=== PATIENT | female | born 1985 | race Caucasian/White ===

== ENCOUNTER 2018-05-07 00:54 | Observation (INO) | payer MEDICAID, SELFPAY ==
[2018-05-07] VITALS (13 sets, daily range): BP systolic 130–136; BP diastolic 70–98; PULSE 58–89; RESP 16–22; TEMP 36.4–36.6; O2SAT 96–100; BMI 21.7; BMI 20.4
[2018-05-07] MEDS: Dicyclomine 20 MG/2 ML Vial IM (01:29)
[2018-05-07] MEDS: proMETHazine 25 MG Tablet PO (01:29)
[2018-05-07] MEDS: DiphenhydrAMINE 25 MG Capsule 50 MG PO (01:29)
--- NOTE | 2018-05-07 01:34 | ED.VISSUMM ---
- ER Visit Summary Date of Service: 05/07/18 Chief Complaint: Detox History of Present Illness: The patient is a 32 F who presents with a few days withdrawing from her fentanyl and heroin. She is requesting detox. She feels anxious nervous she has nausea but no vomiting. Physical Examination: She appears in no significant distress she has no active tremors. Her pupils are 3 mm and reactive she has a regular rate she has clear lungs bilaterally she has a soft abdomen she has normal skin examination and normal exam Emergency Department Course and Treatment: Patient has aCIWA score of 14, this is mild withdrawal and she does not meet criteria for inpatient, however it is in the middle of the night and the detox facility is not open per hospital protocol we will see her in the morning I will hold her in the emergency department until being seen by them. Impression: Opiate addiction requesting detox This note was generated with [employer] dictation software. It may contain incorrect words, spelling, and punctuation that were not noted in review of the chart prior to signing ED Disposition - Plan for ED Patient: Chief Complaint: Substance Abuse Referrals: Care Physician,No Primary [Primary Care Provider] -
--- NOTE | 2018-05-07 10:35 | NURSING ---
notified maggie from the [facility] that pt is here. notified maggie that pt stated that she is homeless.
[2018-05-07] MEDS: Buprenorphine HCl 2 MG TAB.SUBL 4 MG SL (10:53)
--- NOTE | 2018-05-07 12:48 | PCM.HP.STD ---
Problem List (1) Hepatitis C antibody test positive Status: Chronic (2) Opiate addiction Status: Chronic (3) Polysubstance abuse Status: Chronic (4) Nicotine dependence Status: Chronic History of Present Illness Date of Admission: 05/07/18 Chief Complaint: chills, nausea, rhinorrhea and anxiety The patient is a 32 year old F who presented to the ER requesting admission for medic hepatitis C in the past. She has not received treatment. Ally supervised withdrawal from heroin/fentanyl. He last used on 05/05/18. She is c/o chills, rhinorrhea, anxiety and abdominal cramping. She denies diarrhea. No vomiting. She has been to rehab multiple times. The last time was in [place] and she tells me she was sober for about a year. She does not know why she went back to using drugs but then admitted she was hanging out with friends who were using. She admits to testing + for hepatitis C in the past and has not received treatment. She has 5 children and her mother and sister have custody. She denies any alcohol. She does smoke. She denies using any benzo's. She would like to go to a sober living house at [place]. 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 Mother and sister have taken custody of the childre Lives: Homeless Smoking Status: Current every day smoker Tobacco Use: Cigarettes Alcohol: Rare Drugs: Cocaine, Heroin, - - occasional crack - *Family History Maternal History Items: No pertinent history Paternal History Items: No pertinent history Review of Systems Constitutional: Reports: Chills, Malaise. Denies: Fever Eyes: Denies: Vision Change HEENT: Reports: - - runny nose. Denies: Head Aches, Sinus Congestion, Sinus Drainage, Sore Throat Cardiovascular: Denies: Chest Pain, Palpitations Respiratory: Denies: Cough, Shortness of breath at rest, Sputum production Gastrointestinal: Reports: Abdominal Pain - crampy, Vomiting. Denies: Nausea Genitourinary: Denies: Dysuria Gynecological: Denies: Vaginal discharge Musculoskeletal: Denies: Joint Pain, Joint Tenderness Skin: Denies: Jaundice, Wounds Neurological: Denies: Numbness, Tingling, Focal weakness Psychiatric: Denies: Homicidal Ideations, Suicidal Ideations Endocrine: Reports: Change in Body Habitus - losing weight Hematologic/ Lymphatic: Denies: Hx of blood clot VTE Information - Inpt Only VTE Present on Admission: No VTE Mechan Device Prophylaxis: None VTE Pharm Prophylaxis ordered?: No Reason prophylaxis not ordered:: Treatment Not Indicated - Physical Exam General: Alert, Cooperative, - - She is wrapped up in a bblanket and c/o being cold. Looks older than her stated age HEENT: Atraumatic, PERRLA, Normocephalic, - - ? scleral icterus Oral: Dry Mucosa Neck: Supple, No Nuchal Rigidity, Trachea Midline Lungs: Rhonchi - cleared after a few deep breaths Cardiovascular: Regular rate, Regular Rhythm, Normal S1, Normal S2, No murmurs Abdomen: Soft, Non-Distended, Tender - crampy Extremities: No clubbing, No cyanosis, No edema Skin: No breakdown, - - no abscesses, has scarring and discoloration of the skin from od injection sites and some fresh tractsa that do not appear to be infected Neurological: Cranial nerves II-XII grossly intact, Neuro grossly intact Psych/Mental Status: Appropriate Vital Signs Temp Pulse Resp BP Pulse Ox 97.9 F 70 18 133/85 H 100 05/07/18 10:16 05/07/18 10:16 05/07/18 10:16 05/07/18 10:16 05/07/18 10:15 Oxygen Delivery Method Room Air Weight: 115 lb 4.828 oz Body Mass Index (BMI) 20.4 Intake and Output for Last 24 Hours 05/05/18 05/06/18 05/07/18 23:59 23:59 23:59 Output Total 400 / 400 Balance -400 / -400 Laboratory Tests Past 24 Hrs 05/07/18 10:20 Urine Opiates Screen POSITIVE H Urine Methadone Screen NEGATIVE Ur Barbiturates Screen NEGATIVE Ur Phencyclidine Scrn NEGATIVE Ur Amphetamines Screen NEGATIVE U Methamphetamin-MDMA NEGATIVE U Benzodiazepines Scrn NEGATIVE Urine Cocaine Screen POSITIVE H U Cannabinoids Screen NEGATIVE Ur Drug Screen Comment Assessment/Plan Impressions 1. opiate addiction 2. polysubstance abuse 3. Hepatitis C + 4. tobacco dependence unable to get blood - lab tried and the nurses tried - she is afraid of needles and would not let them try again. Urine is negative and her exam is unremarkable so will cancel the lab. She is eating and drinking. Continue the [facility] program for opiate withdrawal. She met with Kacy from [facility] today to discuss destination at [place]. Code Visit Inpatient E&M: [id number] Init Hosp L2
--- NOTE | 2018-05-07 13:04 | HP.PCM_ITS ---
Problem List (1) Hepatitis C antibody test positive Status: Chronic (2) Opiate addiction Status: Chronic (3) Polysubstance abuse Status: Chronic (4) Nicotine dependence Status: Chronic History of Present Illness Date of Admission: 05/07/18 Chief Complaint: chills, nausea, rhinorrhea and anxiety The patient is a 32 year old F who presented to the ER requesting admission for medic hepatitis C in the past. She has not received treatment. Ally supervised withdrawal from heroin/fentanyl. He last used on 05/05/18. She is c/ o chills, rhinorrhea, anxiety and abdominal cramping. She denies diarrhea. No vomiting. She has been to rehab multiple times. The last time was in [place] and she tells me she was sober for about a year. She does not know why she went back to using drugs but then admitted she was hanging out with friends who were using. She admits to testing + for hepatitis C in the past and has not received treatment. She has 5 children and her mother and sister have custody. She denies any alcohol. She does smoke. She denies using any benzo's. She would like to go to a sober living house at [place]. 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 Mother and sister have taken custody of the childre Lives: Homeless Smoking Status: Current every day smoker Tobacco Use: Cigarettes Alcohol: Rare Drugs: Cocaine, Heroin, - - occasional crack - *Family History Maternal History Items: No pertinent history Paternal History Items: No pertinent history Review of Systems Constitutional: Reports: Chills, Malaise. Denies: Fever Eyes: Denies: Vision Change HEENT: Reports: - - runny nose. Denies: Head Aches, Sinus Congestion, Sinus Drainage, Sore Throat Cardiovascular: Denies: Chest Pain, Palpitations Respiratory: Denies: Cough, Shortness of breath at rest, Sputum production Gastrointestinal: Reports: Abdominal Pain - crampy, Vomiting. Denies: Nausea Genitourinary: Denies: Dysuria Gynecological: Denies: Vaginal discharge Musculoskeletal: Denies: Joint Pain, Joint Tenderness Skin: Denies: Jaundice, Wounds Neurological: Denies: Numbness, Tingling, Focal weakness Psychiatric: Denies: Homicidal Ideations, Suicidal Ideations Endocrine: Reports: Change in Body Habitus - losing weight Hematologic/ Lymphatic: Denies: Hx of blood clot VTE Information - Inpt Only VTE Present on Admission: No VTE Mechan Device Prophylaxis: None VTE Pharm Prophylaxis ordered?: No Reason prophylaxis not ordered:: Treatment Not Indicated - Physical Exam General: Alert, Cooperative, - - She is wrapped up in a bblanket and c/o being cold. Looks older than her stated age HEENT: Atraumatic, PERRLA, Normocephalic, - - ? scleral icterus Oral: Dry Mucosa Neck: Supple, No Nuchal Rigidity, Trachea Midline Lungs: Rhonchi - cleared after a few deep breaths Cardiovascular: Regular rate, Regular Rhythm, Normal S1, Normal S2, No murmurs Abdomen: Soft, Non-Distended, Tender - crampy Extremities: No clubbing, No cyanosis, No edema Skin: No breakdown, - - no abscesses, has scarring and discoloration of the skin from od injection sites and some fresh tractsa that do not appear to be infected Neurological: Cranial nerves II-XII grossly intact, Neuro grossly intact Psych/Mental Status: Appropriate Vital Signs Temp Pulse Resp BP Pulse Ox 97.9 F 70 18 133/85 H 100 05/07/18 10:16 05/07/18 10:16 05/07/18 10:16 05/07/18 10:16 05/07/18 10:15 Oxygen Delivery Method Room Air Weight: 115 lb 4.828 oz Body Mass Index (BMI) 20.4 Intake and Output for Last 24 Hours 05/05/18 05/06/18 05/07/18 23:59 23:59 23:59 Output Total 400 / 400 Balance -400 / -400 Laboratory Tests Past 24 Hrs 05/07/18 10:20 Urine Opiates Screen POSITIVE H Urine Methadone Screen NEGATIVE Ur Barbiturates Screen NEGATIVE Ur Phencyclidine Scrn NEGATIVE Ur Amphetamines Screen NEGATIVE U Methamphetamin-MDMA NEGATIVE U Benzodiazepines Scrn NEGATIVE Urine Cocaine Screen POSITIVE H U Cannabinoids Screen NEGATIVE Ur Drug Screen Comment Assessment/Plan Impressions 1. opiate addiction 2. polysubstance abuse 3. Hepatitis C + 4. tobacco dependence unable to get blood - lab tried and the nurses tried - she is afraid of needles and would not let them try again. Urine is negative and her exam is unremarkable so will cancel the lab. She is eating and drinking. Continue the [facility] program for opiate withdrawal. She met with Kacy from [facility] today to discuss destination at [place]. Code Visit Inpatient E&M: [id number] Init Hosp L2
[2018-05-07] MEDS: cloNIDine HCl 0.1 MG Tablet PO (13:24)
[2018-05-07] MEDS: Ibuprofen 600 MG Tablet PO (13:24)
--- NOTE | 2018-05-07 13:30 | CHAPLAIN ---
[facility] staff requested a visit to patient; pt was all covered in blankets and said would you please come back another time?; pt said that she is trying to rest
[2018-05-07 13:36] LABS: Internal QC Validated? YES +Cl - CLEAR BKGD; Pregnancy, Urine Negative Negative
--- NOTE | 2018-05-07 17:00 | NURSING ---
pt left [facility]. pt signed papers. dr notified message left with [facility].
--- NOTE | 2018-05-11 06:40 | PCM.DC.SUM ---
Discharge Date and Diagnosis Date of Admission: 05/07/18 Date of Discharge: 05/07/18 - Primary Discharge Diagnosis acute opiate withdrawal - Secondary Discharge Diagnosis Chronic Problems Hepatitis C antibody test positive (Chronic) Opiate addiction (Chronic) Polysubstance abuse (Chronic) Nicotine dependence (Chronic) Hospital Course and Treatment none Operations: None Procedures: None Summary of Care Provided: The patient is a 32 year old F with a past medical history of polysubstance abuse, opiate dependence, nicotine dependence and hepatitis C who presented to the emergency department at [facility] on 05/07/2018 requesting inpatient admission for medically supervised withdrawal from opiates. She admitted to using heroin, fentanyl, cocaine and sometimes meth. She complained of chills, rhinorrhea, anxiety and abdominal cramping. She had been to multiple rehab programs in the past and failed. Her longest period of sobriety was 1 year. She was admitted to the [facility] program and the [facility] orders for acute opiate withdrawal were instituted. Unfortunately she only stayed approximately 4 hours prior to leaving [facility]. Home Medications: Medications to take at Discharge NK [NK] 05/07/18 Primary Care Physician: Care Physician,No Primary [Primary Care Provider] - Disposition: Against Medical Advice Minutes spent on discharge:: 20 Patient Condition:: Poor Medical Necessity - Tobacco Use Smoking Status: Current every day smoker Tobacco Use: Cigarettes Meaningful Use Info Meaningful Use Diagnoses (Choose all that apply): None applicable Code Visit Inpatient E&M: 72979 Disch Hosp
--- NOTE | 2018-05-11 06:48 | DS.PCM_ITS ---
Discharge Date and Diagnosis Date of Admission: 05/07/18 Date of Discharge: 05/07/18 - Primary Discharge Diagnosis acute opiate withdrawal - Secondary Discharge Diagnosis Chronic Problems Hepatitis C antibody test positive (Chronic) Opiate addiction (Chronic) Polysubstance abuse (Chronic) Nicotine dependence (Chronic) Hospital Course and Treatment none Operations: None Procedures: None Summary of Care Provided: The patient is a 32 year old F with a past medical history of polysubstance abuse, opiate dependence, nicotine dependence and hepatitis C who presented to the emergency department at [facility] on 05/07/2018 requesting inpatient admission for medically supervised withdrawal from opiates. She admitted to using heroin, fentanyl, cocaine and sometimes meth. She complained of chills, rhinorrhea, anxiety and abdominal cramping. She had been to multiple rehab programs in the past and failed. Her longest period of sobriety was 1 year. She was admitted to the [facility] program and the [facility] orders for acute opiate withdrawal were instituted. Unfortunately she only stayed approximately 4 hours prior to leaving [facility]. Home Medications: Medications to take at Discharge NK [NK] 05/07/18 Primary Care Physician: Care Physician,No Primary [Primary Care Provider] - Disposition: Against Medical Advice Minutes spent on discharge:: 20 Patient Condition:: Poor Medical Necessity - Tobacco Use Smoking Status: Current every day smoker Tobacco Use: Cigarettes Meaningful Use Info Meaningful Use Diagnoses (Choose all that apply): None applicable Code Visit Inpatient E&M: 87162 Disch Hosp
== END 2018-05-07 17:07 | disposition left against medical advice (07) ==
LOC: ED 03:37 → MS2 05-10 07:08
PROVIDERS: Admitting Provider Internal Medicine; Emergency Provider Emergency Medicine; Visit Provider Internal Medicine
DX: F11.23 Opioid dependence with withdrawal (principal); B18.2 Chronic viral hepatitis C; F17.210 Nicotine dependence, cigarettes, uncomplicated; Z59.0 Homelessness; F19.10 Other psychoactive substance abuse, uncomplicated
CPT/HCPCS: 80307; 81025; 96372; 97802; 99218; 99282; G0378